=== PATIENT | male | born 1995 | race Caucasian/White ===

== ENCOUNTER 2016-08-10 11:37 | Emergency (ER) | payer BC ==
[~2016-08-10] VITALS: Ht 165.1 cm; Wt 76.9 kg
[~2016-08-10 11:37] MED LIST: NOHOMEMEDS; ZOFRAN4 MG PO
[2016-08-10] MEDS ORDERED: ULTRAM50 MG PO (13:05)
== END 2016-08-10 14:19 | disposition home or self-care (01) ==
LOC: EME 11:37
PROC: 2W3RX1Z Immobilization of Left Lower Leg using Splint (ICD-10-PCS; principal; 2016-08-10)
DX: S82.832A Other fracture of upper and lower end of left fibula, initial encounter for closed fracture (principal); W01.0XXA Fall on same level from slipping, tripping and stumbling without subsequent striking against object, initial encounter
CPT/HCPCS: 73610; 99281; 99284